=== PATIENT | female | born 1995 | race Caucasian/White ===

== ENCOUNTER 2016-06-22 09:13 | Inpatient (IN) | payer BC ==
[~2016-06-22] VITALS: Ht 154.9 cm; Wt 75.0 kg
[~2016-06-22 09:13] MED LIST: ALBUTEROL2.5 MG/3 M IH; AUGMENTIN875 MG PO; FLOVENT 11120 INHALA; HYDROCODON-ACE1 EACH; MOTRIN600 MG PO; NAPROSYN500 MG PO; PERCOCET 5/31 TABLET PO; PREDNISONE10 MG PO; PREDNISONE50 MG PO; PROAIR HFA8.5 GM; PROAIR HFA8.5 GM IH; QVAR 40 MCG IN7.3 GM IH; TRI-SPRINTEC1 EACH PO; VENTOLIN HFA18 GM IH; ZANTAC150 MG PO; ZOFRAN4 MG PO
[2016-06-22] MEDS ORDERED: OMEPRAZOLE40 M1 PO (09:46)
[2016-06-22] MEDS ORDERED: OXYCODONE HCL5 MG PO (09:46)
[2016-06-22 10:18] LABS: HEMATOCRIT 29.8 % (36.0-46.0); MCH 23.9 PG (29.0-34.0); MCHC 30.5 G/DL (30.0-36.0); MCV 78.2 FL (83-99); MEAN PLAT.VOLUME 10.4 uM^3 (9.5-12.4); NRBC (%) 0.1 /100 WBC (0-0); PLATELET COUNT 533 K/uL (156-360); RBC DIS.WIDTH-SD 50.3 % (39-53); RED BLOOD COUNT 3.81 M/uL (3.80-5.20); WHITE BLOOD COUNT 15.2 K/uL (4.1-10.2)
[2016-06-22 10:33] LABS: D-DIMER ELISA > 4.00 mg/L FEU (< 0.57)
[2016-06-22 10:48] LABS: ALKALINE PHOSPHATASE 168 IU/L (3-129); ANION GAP 10 MEQ/L (2-14); CHLORIDE 104 MEQ/L (99-109); GFR ESTIMATE (CALCULATED) > 59 mL/min/; GLUCOSE 105 mg/dL (70-99); POTASSIUM 4.2 MEQ/L (3.7-5.4); SAMPLE HEMOLYSIS CHECK 0; SAMPLE ICTERIC CHECK 0; SAMPLE LIPEMIA CHECK 0; SODIUM 137 MEQ/L (136-147); TOTAL BILIRUBIN 0.5 MG/DL (0.0-1.0); UREA NITROGEN (BUN) 13 mg/dL (9-23)
[2016-06-22 11:13] LABS: LIPASE 20 U/L (1.0-51.0)
[2016-06-22 11:44] LABS: BASOPHIL COUNT 0.1 K/uL (0-0.1); EOSINOPHIL (%) 1.3 % (0-5); EOSINOPHIL COUNT 0.2 K/uL (0-0.3); HEMATOLOGY COMMENT 1 SMEAR COMPATIBLE; IMMATURE GRANULOCYTE (%) 1.1 % (0.0-0.7); IMMATURE GRANULOCYTE COUNT 0.2 K/uL; LYMPHOCYTE COUNT 1.8 K/uL (1.0-2.8); MONOCYTE (%) 7.6 % (3-12); MONOCYTE COUNT 1.2 K/uL (0-0.8); NEUTROPHIL (%) 78.2 % (45-76); NEUTROPHIL COUNT 11.9 K/uL (1.8-6.4); USER ID STC
[2016-06-22] MEDS ORDERED: SYMBICORT60 INHALA1 IH (14:04)
[2016-06-22] MEDS ORDERED: TPN IV (14:05)
[2016-06-22 14:19] LABS: INTER. NORMALIZED RATIO 1.1; PROTHROMBIN TIME 10.7 (9.2-11.2); PTT 41.7 (25-32)
[2016-06-22 16:21] LABS: IRON 28 MCG/DL (35-150)
[2016-06-22 16:57] LABS: FERRITIN 43 NG/ML (10-291)
[2016-06-22 17:53] VITALS: BP 124/63
[2016-06-22 20:01] VITALS: BP 119/75
[2016-06-23 00:25] VITALS: BP 114/69
[2016-06-23 04:45] VITALS: BP 121/69
[2016-06-23 07:03] LABS: MCH 23.9 PG (29.0-34.0); MCHC 30.7 G/DL (30.0-36.0); MCV 77.8 FL (83-99); RBC DIS.WIDTH-CV 18.9 % (11.8-14.6); RBC DIS.WIDTH-SD 52.2 % (39-53); RED BLOOD COUNT 3.47 M/uL (3.80-5.20)
[2016-06-23 07:06] LABS: WHITE BLOOD COUNT 8.5 K/uL (4.1-10.2)
[2016-06-23 07:21] LABS: ANION GAP 9 MEQ/L (2-14); CHLORIDE 109 MEQ/L (99-109); GFR ESTIMATE (CALCULATED) > 59 mL/min/; GLUCOSE 80 mg/dL (70-99); POTASSIUM 3.7 MEQ/L (3.7-5.4); SAMPLE HEMOLYSIS CHECK 0; SAMPLE ICTERIC CHECK 0; SAMPLE LIPEMIA CHECK 0; SODIUM 140 MEQ/L (136-147); UREA NITROGEN (BUN) 6 mg/dL (9-23)
[2016-06-23 08:14] LABS: MEAN PLAT.VOLUME 10.2 uM^3 (9.5-12.4)
[2016-06-23 08:17] VITALS: BP 129/72
[2016-06-23 08:31] LABS: PLATELET COUNT 371 K/uL (156-360)
[2016-06-23 12:29] VITALS: BP 131/81
[2016-06-23 20:16] VITALS: BP 126/69
[2016-06-24] VITALS (7 sets, daily range): BP systolic 95–128; BP diastolic 43–73
[2016-06-24 04:43] LABS: ADD dRVVT REFLEX? Y; DRVVT Mixing Study Interp Not Indicated (()); dRVVT Screen 60 sec (<=45)
[2016-06-24 05:15] LABS: ADD PTT REFLEX? Y; PTT-LA 55 sec (<=40); PTT-LA Reflex Has been added (())
[2016-06-24 06:49] LABS: HEMATOCRIT 25.5 % (36.0-46.0); MCH 24.1 PG (29.0-34.0); MCHC 30.6 G/DL (30.0-36.0); MCV 78.7 FL (83-99); MEAN PLAT.VOLUME 10.6 uM^3 (9.5-12.4); PLATELET COUNT 328 K/uL (156-360); RBC DIS.WIDTH-CV 19.1 % (11.8-14.6); RBC DIS.WIDTH-SD 53.2 % (39-53); RED BLOOD COUNT 3.24 M/uL (3.80-5.20); WHITE BLOOD COUNT 7.9 K/uL (4.1-10.2)
[2016-06-24 07:14] LABS: EOSINOPHIL (%) 2.9 % (0-5); EOSINOPHIL COUNT 0.2 K/uL (0-0.3); IMMATURE GRANULOCYTE (%) 0.5 % (0.0-0.7); LYMPHOCYTE COUNT 2.1 K/uL (1.0-2.8); MONOCYTE (%) 9.8 % (3-12); MONOCYTE COUNT 0.8 K/uL (0-0.8); NEUTROPHIL (%) 60.1 % (45-76); NEUTROPHIL COUNT 4.7 K/uL (1.8-6.4)
[2016-06-24 07:15] LABS: ALKALINE PHOSPHATASE 115 IU/L (3-129); ANION GAP 12 MEQ/L (2-14); CHLORIDE 104 MEQ/L (99-109); DIRECT BILIRUBIN 0.2 mg/dL (0.0-0.3); GFR ESTIMATE (CALCULATED) > 59 mL/min/; GLUCOSE 87 mg/dL (70-99); MAGNESIUM 1.5 mg/dl (1.3-2.7); POTASSIUM 3.6 MEQ/L (3.7-5.4); PREALBUMIN 14.6 mg/dL (10-40); SAMPLE HEMOLYSIS CHECK 0; SAMPLE ICTERIC CHECK 0; SAMPLE LIPEMIA CHECK 0; SODIUM 139 MEQ/L (136-147); TOTAL BILIRUBIN 0.5 MG/DL (0.0-1.0); TRIGLYCERIDES 220 MG/DL (Normal: <150); UREA NITROGEN (BUN) 5 mg/dL (9-23)
[2016-06-24 13:56] LABS: Protein S, Free 84 % normal (50-147)
[2016-06-25 03:50] VITALS: BP 114/63
[2016-06-25 07:42] VITALS: BP 118/61
[2016-06-25 08:56] LABS: HEMATOCRIT 28.6 % (36.0-46.0); MCH 23.6 PG (29.0-34.0); MCHC 30.1 G/DL (30.0-36.0); MCV 78.4 FL (83-99); MEAN PLAT.VOLUME 10.6 uM^3 (9.5-12.4); PLATELET COUNT 335 K/uL (156-360); RBC DIS.WIDTH-CV 19.1 % (11.8-14.6); RBC DIS.WIDTH-SD 52.8 % (39-53); RED BLOOD COUNT 3.65 M/uL (3.80-5.20)
[2016-06-25 09:07] LABS: EOSINOPHIL (%) 2.9 % (0-5); EOSINOPHIL COUNT 0.2 K/uL (0-0.3); IMMATURE GRANULOCYTE (%) 0.4 % (0.0-0.7); LYMPHOCYTE COUNT 2.2 K/uL (1.0-2.8); MONOCYTE (%) 7.9 % (3-12); MONOCYTE COUNT 0.6 K/uL (0-0.8); NEUTROPHIL (%) 61.2 % (45-76); NEUTROPHIL COUNT 4.9 K/uL (1.8-6.4)
[2016-06-25 09:24] LABS: ANION GAP 11 MEQ/L (2-14); CHLORIDE 105 MEQ/L (99-109); GFR ESTIMATE (CALCULATED) > 59 mL/min/; POTASSIUM 4.1 MEQ/L (3.7-5.4); SAMPLE HEMOLYSIS CHECK 0; SAMPLE ICTERIC CHECK 0; SAMPLE LIPEMIA CHECK 0; SODIUM 138 MEQ/L (136-147); UREA NITROGEN (BUN) 11 mg/dL (9-23)
[2016-06-25 09:27] LABS: GLUCOSE 119 mg/dL (70-99); MAGNESIUM 1.9 mg/dl (1.3-2.7)
[2016-06-25 11:58] VITALS: BP 112/60
[2016-06-25 16:06] VITALS: BP 120/60
[2016-06-25 19:24] VITALS: BP 125/72
[2016-06-26] VITALS: BP 125/65
[2016-06-26 03:22] LABS: HEMATOCRIT 27.4 % (36.0-46.0); MCH 24.4 PG (29.0-34.0); MCV 78.7 FL (83-99); MEAN PLAT.VOLUME 10.7 uM^3 (9.5-12.4); PLATELET COUNT 348 K/uL (156-360); RBC DIS.WIDTH-CV 19.8 % (11.8-14.6); RBC DIS.WIDTH-SD 50.9 % (39-53); RED BLOOD COUNT 3.48 M/uL (3.80-5.20); WHITE BLOOD COUNT 8.4 K/uL (4.1-10.2)
[2016-06-26 03:23] LABS: EOSINOPHIL (%) 5.7 % (0-5); EOSINOPHIL COUNT 0.5 K/uL (0-0.3); IMMATURE GRANULOCYTE (%) 0.6 % (0.0-0.7); IMMATURE GRANULOCYTE COUNT 0.5 K/uL; LYMPHOCYTE COUNT 2.6 K/uL (1.0-2.8); MONOCYTE (%) 7.5 % (3-12); MONOCYTE COUNT 0.6 K/uL (0-0.8); NEUTROPHIL (%) 54.9 % (45-76); NEUTROPHIL COUNT 4.6 K/uL (1.8-6.4)
[2016-06-26 03:30] LABS: CHLORIDE 108 mEq/L (99-109)
[2016-06-26 03:31] LABS: MAGNESIUM 1.8 mg/dL (1.3-2.7); POTASSIUM 3.7 mEq/L (3.7-5.4); SODIUM 139 mEq/L (136-147)
[2016-06-26 03:37] LABS: GLUCOSE 134 mg/dL (70-99)
[2016-06-26 03:39] LABS: ANION GAP 8 MEQ/L (2-14)
[2016-06-26 03:41] LABS: GFR ESTIMATE (CALCULATED) > 59 mL/min/
[2016-06-26 03:42] LABS: UREA NITROGEN (BUN) 9 mg/dL (9-23)
[2016-06-26 03:48] VITALS: BP 116/76
[2016-06-26 07:54] VITALS: BP 116/65
[2016-06-26 11:30] VITALS: BP 109/55
[2016-06-26 15:54] VITALS: BP 109/68
[2016-06-26 19:32] VITALS: BP 123/87
[2016-06-27] VITALS: BP 116/69
[2016-06-27 04:00] VITALS: BP 108/57
[2016-06-27 06:47] LABS: ANION GAP 9 MEQ/L (2-14); CHLORIDE 104 MEQ/L (99-109); GFR ESTIMATE (CALCULATED) > 59 mL/min/; GLUCOSE 120 mg/dL (70-99); SAMPLE HEMOLYSIS CHECK 0; SAMPLE ICTERIC CHECK 0; SAMPLE LIPEMIA CHECK 0; SODIUM 135 MEQ/L (136-147); UREA NITROGEN (BUN) 11 mg/dL (9-23)
[2016-06-27 06:49] LABS: POTASSIUM 4.5 MEQ/L (3.7-5.4)
[2016-06-27 07:40] VITALS: BP 105/58
[2016-06-27 08:54] LABS: HEMATOCRIT 30.5 % (36.0-46.0); MCH 24.1 PG (29.0-34.0); MCHC 28.9 G/DL (30.0-36.0); MCV 83.6 FL (83-99); MEAN PLAT.VOLUME 11.4 uM^3 (9.5-12.4); PLATELET COUNT 330 K/uL (156-360); RBC DIS.WIDTH-CV 20.9 % (11.8-14.6); RBC DIS.WIDTH-SD 59.5 % (39-53); RED BLOOD COUNT 3.65 M/uL (3.80-5.20); WHITE BLOOD COUNT 6.4 K/uL (4.1-10.2)
[2016-06-27 11:00] LABS: HEMATOCRIT 32.3 % (36.0-46.0); MCH 24.3 PG (29.0-34.0); MCV 80.8 FL (83-99); MEAN PLAT.VOLUME 10.4 uM^3 (9.5-12.4); PLATELET COUNT 362 K/uL (156-360); RBC DIS.WIDTH-CV 20.8 % (11.8-14.6); RBC DIS.WIDTH-SD 56.9 % (39-53); WHITE BLOOD COUNT 7.8 K/uL (4.1-10.2)
[2016-06-27 11:06] VITALS: BP 120/59
[2016-06-27 15:46] VITALS: BP 113/55
[2016-06-27 18:55] LABS: HEMATOCRIT 34.3 % (36.0-46.0); MCH 24.9 PG (29.0-34.0); MCHC 30.9 G/DL (30.0-36.0); MCV 80.7 FL (83-99); MEAN PLAT.VOLUME 10.6 uM^3 (9.5-12.4); PLATELET COUNT 376 K/uL (156-360); RBC DIS.WIDTH-CV 21.1 % (11.8-14.6); RBC DIS.WIDTH-SD 57.1 % (39-53); RED BLOOD COUNT 4.25 M/uL (3.80-5.20)
[2016-06-27 19:22] LABS: TROP-I INTERPRETATION NEGATIVE; TROPONIN-I < 0.01 ng/mL (0.0-0.30)
[2016-06-27 20:00] VITALS: BP 125/75
[2016-06-28 00:34] VITALS: BP 112/63
[2016-06-28 04:00] VITALS: BP 119/59
[2016-06-28 07:06] LABS: ANION GAP 7 MEQ/L (2-14); CHLORIDE 106 MEQ/L (99-109); GFR ESTIMATE (CALCULATED) > 59 mL/min/; GLUCOSE 114 mg/dL (70-99); POTASSIUM 4.6 MEQ/L (3.7-5.4); SAMPLE HEMOLYSIS CHECK 0; SAMPLE ICTERIC CHECK 0; SAMPLE LIPEMIA CHECK 0; SODIUM 134 MEQ/L (136-147); UREA NITROGEN (BUN) 14 mg/dL (9-23)
[2016-06-28 08:05] VITALS: BP 112/65
[2016-06-28 15:12] VITALS: BP 105/59
[2016-06-28 23:52] VITALS: BP 107/55
[2016-06-29 06:56] LABS: HEMATOCRIT 30.8 % (36.0-46.0); MCHC 30.5 G/DL (30.0-36.0); MCV 81.9 FL (83-99); PLATELET COUNT 332 K/uL (156-360); RBC DIS.WIDTH-CV 20.9 % (11.8-14.6); RBC DIS.WIDTH-SD 61.8 % (39-53); RED BLOOD COUNT 3.76 M/uL (3.80-5.20); WHITE BLOOD COUNT 7.8 K/uL (4.1-10.2)
[2016-06-29 07:07] LABS: BASOPHIL COUNT 0.1 K/uL (0-0.1); EOSINOPHIL (%) 5.5 % (0-5); EOSINOPHIL COUNT 0.4 K/uL (0-0.3); IMMATURE GRANULOCYTE (%) 0.5 % (0.0-0.7); LYMPHOCYTE COUNT 2.2 K/uL (1.0-2.8); MONOCYTE (%) 6.7 % (3-12); MONOCYTE COUNT 0.5 K/uL (0-0.8); NEUTROPHIL (%) 58.6 % (45-76); NEUTROPHIL COUNT 4.5 K/uL (1.8-6.4)
[2016-06-29 07:23] LABS: ALKALINE PHOSPHATASE 90 IU/L (3-129); ANION GAP 8 MEQ/L (2-14); CHLORIDE 104 MEQ/L (99-109); DIRECT BILIRUBIN 0.2 mg/dL (0.0-0.3); GFR ESTIMATE (CALCULATED) > 59 mL/min/; GLUCOSE 107 mg/dL (70-99); MAGNESIUM 1.8 mg/dl (1.3-2.7); POTASSIUM 4.5 MEQ/L (3.7-5.4); PREALBUMIN 27.1 mg/dL (10-40); SAMPLE HEMOLYSIS CHECK 0; SAMPLE ICTERIC CHECK 0; SAMPLE LIPEMIA CHECK 0; SODIUM 136 MEQ/L (136-147); TOTAL BILIRUBIN 0.4 MG/DL (0.0-1.0); TRIGLYCERIDES 183 MG/DL (Normal: <150); UREA NITROGEN (BUN) 13 mg/dL (9-23)
[2016-06-29 07:45] VITALS: BP 106/58
[2016-06-29] MEDS ORDERED: LOVENOX60 MG/0.6 SC (14:53)
[2016-06-29 15:26] VITALS: BP 112/63
== END 2016-06-29 18:07 | disposition home or self-care (01) | DRG 871 ==
LOC: EME 09:13 → 5SOUTH 14:10 → EDOF 14:10 → 5SOUTH 17:08
PROVIDERS: Emergency Medicine; Hospitalist; Internal Medicine; Physician Assistant; Physician Assistant Medical
DX: A41.9 Sepsis, unspecified organism (principal); I26.99 Other pulmonary embolism without acute cor pulmonale; J18.9 Pneumonia, unspecified organism; E44.1 Mild protein-calorie malnutrition; K50.014 Crohn's disease of small intestine with abscess; K91.89 Other postprocedural complications and disorders of digestive system; D64.89 Other specified anemias; R07.89 Other chest pain; J45.20 Mild intermittent asthma, uncomplicated; I80.8 Phlebitis and thrombophlebitis of other sites; B95.1 Streptococcus, group B, as the cause of diseases classified elsewhere; B95.61 Methicillin susceptible Staphylococcus aureus infection as the cause of diseases classified elsewhere; E66.3 Overweight; K21.9 Gastro-esophageal reflux disease without esophagitis; Z98.890 Other specified postprocedural states; Z91.040 Latex allergy status; Z91.010 Allergy to peanuts; Z88.1 Allergy status to other antibiotic agents
CPT/HCPCS: 71020; 71275; 74177; 80048; 80053; 80202; 81241 90; 82248; 82607; 82728; 82746; 82948; 83090 90; 83540; 83605; 83690; 83735; 84100; 84134; 84466; 84478; 84484; 84630 90; 85025; 85027; 85305 90; 85306 90; 85379; 85597 90; 85610; 85613 90; 85730; 85730 90; 86140; 87040; 87077; 87147; 87186; 87801; 93005; 93970; 94010; 94640; 94640 76; 94760; 94799; 99202; 99281; 99285; J1170; J1200; J1650; J1756; J1815; J1885; J2270; J2405; J2543; J3370; J3475; J3480; J7030; J7040; J7042; J7050; S0028

== ENCOUNTER 2016-06-30 21:14 | Observation (INO) | payer BC ==
[~2016-06-30] VITALS: Ht 154.9 cm; Wt 73.8 kg
[~2016-06-30 21:14] MED LIST changes: +LOVENOX60 MG/0.6 SC; +OMEPRAZOLE40 M1 PO; +OXYCODONE HCL5 MG PO; +SYMBICORT60 INHALA1 IH; +TPN IV
[2016-06-30 23:50] LABS: HEMATOCRIT 31.3 % (36.0-46.0); MCH 25.1 PG (29.0-34.0); MCV 80.9 FL (83-99); MEAN PLAT.VOLUME 10.6 uM^3 (9.5-12.4); PLATELET COUNT 332 K/uL (156-360); RBC DIS.WIDTH-SD 58.8 % (39-53); RED BLOOD COUNT 3.87 M/uL (3.80-5.20); WHITE BLOOD COUNT 8.2 K/uL (4.1-10.2)
[2016-07-01 00:01] LABS: CHLORIDE 105 mEq/L (99-109); INTER. NORMALIZED RATIO 1.1; POTASSIUM 3.7 mEq/L (3.7-5.4); PROTHROMBIN TIME 11.3 (9.2-11.2); SODIUM 139 mEq/L (136-147)
[2016-07-01 00:04] LABS: ANION GAP 11 MEQ/L (2-14)
[2016-07-01 00:05] LABS: TOTAL BILIRUBIN 0.7 mg/dL (0.0-1.0)
[2016-07-01 00:07] LABS: ALKALINE PHOSPHATASE 109 IU/L (3-129); EOSINOPHIL (%) 4.3 % (0-5); EOSINOPHIL COUNT 0.4 K/uL (0-0.3); GFR ESTIMATE (CALCULATED) > 59 mL/min/; IMMATURE GRANULOCYTE (%) 0.2 % (0.0-0.7); IMMATURE GRANULOCYTE COUNT 0.2 K/uL; LYMPHOCYTE COUNT 2.2 K/uL (1.0-2.8); MONOCYTE (%) 6.6 % (3-12); MONOCYTE COUNT 0.5 K/uL (0-0.8); NEUTROPHIL (%) 62.1 % (45-76); NEUTROPHIL COUNT 5.1 K/uL (1.8-6.4)
[2016-07-01 00:08] LABS: UREA NITROGEN (BUN) 13 mg/dL (9-23)
[2016-07-01 00:10] LABS: CREATINE KINASE 15 IU/L (1-294); LIPASE 7 U/L (1.0-51.0); TOTAL CK 15 IU/L (1-294)
[2016-07-01 00:12] LABS: TROP-I INTERPRETATION NEGATIVE; TROPONIN-I 0.02 ng/mL (0.0-0.30)
[2016-07-01 00:16] LABS: CK-MB < 0.4 ng/mL (0.0-4.9)
[2016-07-01 00:19] LABS: GLUCOSE 80 mg/dL (70-99)
[2016-07-01] MEDS ORDERED: PIPERACIL-TA3.375 GM IV (01:40)
[2016-07-01 04:59] VITALS: BP 100/53
[2016-07-01 06:35] VITALS: BP 104/55
[2016-07-01 07:16] VITALS: BP 105/61
[2016-07-01 07:23] LABS: HEMATOCRIT 28.9 % (36.0-46.0); MCH 25.1 PG (29.0-34.0); MCHC 31.1 G/DL (30.0-36.0); MCV 80.7 FL (83-99); MEAN PLAT.VOLUME 10.5 uM^3 (9.5-12.4); PLATELET COUNT 244 K/uL (156-360); RBC DIS.WIDTH-CV 20.9 % (11.8-14.6); RBC DIS.WIDTH-SD 61.5 % (39-53); RED BLOOD COUNT 3.58 M/uL (3.80-5.20); WHITE BLOOD COUNT 6.3 K/uL (4.1-10.2)
[2016-07-01 07:50] LABS: ALKALINE PHOSPHATASE 82 IU/L (3-129); ANION GAP 10 MEQ/L (2-14); CHLORIDE 107 MEQ/L (99-109); GFR ESTIMATE (CALCULATED) > 59 mL/min/; GLUCOSE 79 mg/dL (70-99); POTASSIUM 3.9 MEQ/L (3.7-5.4); SAMPLE HEMOLYSIS CHECK 0; SAMPLE ICTERIC CHECK 0; SAMPLE LIPEMIA CHECK 0; SODIUM 139 MEQ/L (136-147); UREA NITROGEN (BUN) 12 mg/dL (9-23)
[2016-07-01 07:51] LABS: TROP-I INTERPRETATION NEGATIVE; TROPONIN-I < 0.01 ng/mL (0.0-0.30)
[2016-07-01 07:52] LABS: TOTAL BILIRUBIN 0.5 MG/DL (0.0-1.0)
[2016-07-01 08:09] LABS: MAGNESIUM 1.4 mg/dl (1.3-2.7)
[2016-07-01 11:49] VITALS: BP 122/61
[2016-07-01 13:46] LABS: TROP-I INTERPRETATION NEGATIVE; TROPONIN-I < 0.01 ng/mL (0.0-0.30)
== END 2016-07-01 14:50 | disposition home or self-care (01) ==
LOC: EME 21:14 → 5WEST 07-01 02:38 → EDOF 07-01 02:38 → 5WEST 07-01 04:33
PROVIDERS: Emergency Medicine; Internal Medicine
DX: K50.90 Crohn's disease, unspecified, without complications (principal); R07.9 Chest pain, unspecified; I26.99 Other pulmonary embolism without acute cor pulmonale; K91.89 Other postprocedural complications and disorders of digestive system; Z98.890 Other specified postprocedural states; K21.9 Gastro-esophageal reflux disease without esophagitis; J45.909 Unspecified asthma, uncomplicated; Z79.01 Long term (current) use of anticoagulants; Z88.1 Allergy status to other antibiotic agents; Z91.040 Latex allergy status; Z91.010 Allergy to peanuts
CPT/HCPCS: 71010; 80053; 81003; 82550; 82553; 83605; 83690; 83735; 84100; 84484; 85025; 85027; 85610; 85730; 93005; 94640; 99202; 99281; 99285; C9113; G0378; J1650; J1885; J2060; J2270; J2405; J2543; J3475; J7030; J7050

== ENCOUNTER 2016-10-30 21:50 | Emergency (ER) | payer BC ==
[~2016-10-30] VITALS: Ht 154.9 cm; Wt 72.9 kg
[~2016-10-30 21:50] MED LIST changes: +PIPERACIL-TA3.375 GM IV
[2016-10-30 22:56] LABS: HEMATOCRIT 42.7 % (36.0-46.0); MCH 26.1 PG (29.0-34.0); MCHC 32.1 G/DL (30.0-36.0); MCV 81.5 FL (83-99); MEAN PLAT.VOLUME 9.4 uM^3 (9.5-12.4); PLATELET COUNT 363 K/uL (156-360); RBC DIS.WIDTH-CV 19.4 % (11.8-14.6); RBC DIS.WIDTH-SD 55.2 % (39-53); RED BLOOD COUNT 5.24 M/uL (3.80-5.20); WHITE BLOOD COUNT 13.1 K/uL (4.1-10.2)
[2016-10-30 23:05] LABS: CHLORIDE 106 mEq/L (99-109); POTASSIUM 3.6 mEq/L (3.7-5.4); SODIUM 137 mEq/L (136-147)
[2016-10-30 23:06] LABS: GLUCOSE 92 mg/dL (70-99)
[2016-10-30 23:08] LABS: ANION GAP 6 MEQ/L (2-14)
[2016-10-30 23:10] LABS: GFR ESTIMATE (CALCULATED) > 59 mL/min/
[2016-10-30 23:34] LABS: PROTHROMBIN TIME 119.1 (9.2-11.2); PTT 79.3 (25-32)
[2016-10-30 23:55] VITALS: BP 138/90
[2016-10-31 00:13] LABS: INTER. NORMALIZED RATIO 10.9
[2016-10-31 02:22] LABS: UREA NITROGEN (BUN) 10 mg/dL (9-23)
== END 2016-10-31 00:08 | disposition home or self-care (01) ==
LOC: EME 21:50
DX: R79.1 Abnormal coagulation profile (principal); R51 Headache; Z86.711 Personal history of pulmonary embolism; Z79.01 Long term (current) use of anticoagulants; J45.909 Unspecified asthma, uncomplicated; K21.9 Gastro-esophageal reflux disease without esophagitis
CPT/HCPCS: 70450; 71020; 80048; 85027; 85610; 85730; 99281; 99283

== ENCOUNTER 2017-02-04 16:49 | Emergency (ER) | payer BC ==
[~2017-02-04] VITALS: Ht 154.9 cm; Wt 75.8 kg
[2017-02-04] MEDS ORDERED: TRAZODONE HCL50 MG PO (17:11)
[2017-02-04] MEDS ORDERED: FLUOXETINE HCL10 MG PO (17:11)
[2017-02-04 17:22] LABS: HEMATOCRIT 42.1 % (36.0-46.0); MCH 28.8 PG (29.0-34.0); MCHC 33.5 G/DL (30.0-36.0); MCV 86.1 FL (83-99); MEAN PLAT.VOLUME 9.6 uM^3 (9.5-12.4); PLATELET COUNT 297 K/uL (156-360); RBC DIS.WIDTH-CV 12.5 % (11.8-14.6); RBC DIS.WIDTH-SD 39.4 % (39-53); RED BLOOD COUNT 4.89 M/uL (3.80-5.20); WHITE BLOOD COUNT 11.8 K/uL (4.1-10.2)
[2017-02-04 17:32] LABS: CHLORIDE 103 mEq/L (99-109); POTASSIUM 3.8 mEq/L (3.7-5.4); SODIUM 138 mEq/L (136-147)
[2017-02-04 17:34] LABS: GLUCOSE 91 mg/dL (70-99)
[2017-02-04 17:36] LABS: ANION GAP 13 MEQ/L (2-14); TOTAL BILIRUBIN 0.4 mg/dL (0.0-1.0)
[2017-02-04 17:38] LABS: ALKALINE PHOSPHATASE 116 IU/L (3-129); GFR ESTIMATE (CALCULATED) > 59 mL/min/
[2017-02-04 17:39] LABS: UREA NITROGEN (BUN) 8 mg/dL (9-23)
[2017-02-04 17:41] LABS: LIPASE 15 U/L (1.0-51.0)
[2017-02-04 17:45] LABS: AMYLASE 46 IU/L (1-118)
[2017-02-04 17:48] LABS: QUANTITATIVE HCG < 4.0 MIU/ML
[2017-02-04 17:59] LABS: ADD MIUA? YES; BILIRUBIN NEGATIVE; BLOOD NEGATIVE; COLOR YELLOW ((YELLOW)); GLUCOSE (STRIP) NEGATIVE; KETONES NEGATIVE; LEUKOCYTES SMALL; NITRITE NEGATIVE; PROTEIN (STRIP) NEGATIVE; SPECIFIC GRAVITY 1.014 (1.000-1.030); UROBILINOGEN 0.2 MG/DL (0.2-1.0)
[2017-02-04 18:04] LABS: BACTERIA NONE SEEN /HPF; EPITHELIAL CELLS RARE /HPF; HYALINE CASTS 0-5 /LPF; MUCUS TRACE /LPF; RED BLOOD CELLS 0-5 /HPF (0-5); UCUL ADDED? YES; WHITE BLOOD CELLS 20-30 /HPF (0-5)
[2017-02-04] MEDS ORDERED: PREDNISONE20 MG PO (21:31)
[2017-02-04 21:50] VITALS: BP 126/76
== END 2017-02-04 21:51 | disposition home or self-care (01) ==
LOC: EME 16:49
PROVIDERS: Physician Assistant Medical
DX: K50.911 Crohn's disease, unspecified, with rectal bleeding (principal); N83.292 Other ovarian cyst, left side; Z90.49 Acquired absence of other specified parts of digestive tract; J45.909 Unspecified asthma, uncomplicated; Z86.711 Personal history of pulmonary embolism
CPT/HCPCS: 74177; 76856; 80053; 81003; 82150; 83690; 84702; 85027; 87077; 87086; 87186; 87493; 99281; 99285; J1885; J2405; J7030; J7512

== ENCOUNTER 2017-06-07 10:37 | Inpatient (IN) | payer BC ==
[~2017-06-07] VITALS: Ht 154.9 cm; Wt 81.5 kg
[~2017-06-07 10:37] MED LIST changes: +FLUOXETINE HCL10 MG PO; +PREDNISONE20 MG PO; +TRAZODONE HCL50 MG PO
[2017-06-07 11:51] LABS: HEMATOCRIT 43.2 % (36.0-46.0); MCH 29.5 PG (29.0-34.0); MCHC 34.7 G/DL (30.0-36.0); MCV 84.9 FL (83-99); PLATELET COUNT 392 K/uL (156-360); RBC DIS.WIDTH-CV 12.2 % (11.8-14.6); RBC DIS.WIDTH-SD 37.5 % (39-53); RED BLOOD COUNT 5.09 M/uL (3.80-5.20); WHITE BLOOD COUNT 14.6 K/uL (4.1-10.2)
[2017-06-07 12:03] LABS: ALBUMIN 4.3 g/dL (3.2-4.8); CHLORIDE 103 mEq/L (99-109); POTASSIUM 3.6 mEq/L (3.7-5.4); SODIUM 137 mEq/L (136-147)
[2017-06-07 12:04] LABS: APPEARANCE SL.HAZY ((CLEAR)); BILIRUBIN NEGATIVE; BLOOD MODERATE; COLOR YELLOW ((YELLOW)); GLUCOSE (STRIP) NEGATIVE; KETONES NEGATIVE; LEUKOCYTES LARGE; NITRITE NEGATIVE; PROTEIN (STRIP) NEGATIVE; SPECIFIC GRAVITY 1.012 (1.000-1.030); UROBILINOGEN 0.2 MG/DL (0.2-1.0)
[2017-06-07 12:05] LABS: GLUCOSE 87 mg/dL (70-99); TOTAL PROTEIN 7.7 g/dL (6.4-8.3)
[2017-06-07 12:07] LABS: TOTAL BILIRUBIN 0.5 mg/dL (0.0-1.0)
[2017-06-07 12:09] LABS: BACTERIA RARE /HPF; CALCIUM OXALATE CRYSTALS 1+ /HPF; EPITHELIAL CELLS RARE /HPF; MUCUS TRACE /LPF; UCUL ADDED? YES; WHITE BLOOD CELLS TNTC /HPF (0-5)
[2017-06-07 12:09] LABS: ALKALINE PHOSPHATASE 121 IU/L (3-129); CREATININE 0.7 mg/dL (0.6-1.3); GFR ESTIMATE (CALCULATED) > 59 mL/min/
[2017-06-07 12:10] LABS: UREA NITROGEN (BUN) 10 mg/dL (9-23)
[2017-06-07 12:11] LABS: AST (GOT) 19 IU/L (2-34)
[2017-06-07 12:12] LABS: ALT (GPT) 13 IU/L (3-49)
[2017-06-07 12:18] LABS: QUANTITATIVE HCG < 4.0 MIU/ML
[2017-06-07] MEDS ORDERED: CEFTIN250 MG PO (19:32)
[2017-06-07 19:45] LABS: C DIFF TOXIN POSITIVE (NEGATIVE)
[2017-06-07] MEDS ORDERED: VENTOLIN HFA18 GM IH (20:08)
[2017-06-07] MEDS ORDERED: MONTELUKAST SOD10 MG PO (20:10)
[2017-06-07] MEDS ORDERED: BREO ELLIPTA 21 EACH IH (20:10)
[2017-06-07] MEDS ORDERED: ALBUTEROL1.25 MG/3 IH (20:10)
[2017-06-08 07:20] LABS: BASOPHIL (%) 0.7 % (0-1); BASOPHIL COUNT 0.1 K/uL (0-0.1); EOSINOPHIL (%) 11.8 % (0-5); EOSINOPHIL COUNT 1.2 K/uL (0-0.3); HEMATOCRIT 39.2 % (36.0-46.0); HEMOGLOBIN 13.1 G/DL (11.9-15.5); IMMATURE GRANULOCYTE (%) 0.5 % (0.0-0.7); LYMPHOCYTE (%) 26.8 % (15-42); LYMPHOCYTE COUNT 2.7 K/uL (1.0-2.8); MCH 28.8 PG (29.0-34.0); MCHC 33.4 G/DL (30.0-36.0); MCV 86.2 FL (83-99); MONOCYTE (%) 6.3 % (3-12); MONOCYTE COUNT 0.6 K/uL (0-0.8); NEUTROPHIL (%) 53.9 % (45-76); NEUTROPHIL COUNT 5.3 K/uL (1.8-6.4); PLATELET COUNT 280 K/uL (156-360); RBC DIS.WIDTH-CV 12.5 % (11.8-14.6); RBC DIS.WIDTH-SD 39.7 % (39-53); RED BLOOD COUNT 4.55 M/uL (3.80-5.20); WHITE BLOOD COUNT 9.9 K/uL (4.1-10.2)
[2017-06-08 07:35] LABS: CHLORIDE 111 mEq/L (99-109); POTASSIUM 3.8 mEq/L (3.7-5.4); SODIUM 138 mEq/L (136-147)
[2017-06-08 07:36] LABS: GLUCOSE 79 mg/dL (70-99)
[2017-06-08 07:40] LABS: CREATININE 0.6 mg/dL (0.6-1.3); GFR ESTIMATE (CALCULATED) > 59 mL/min/
[2017-06-08 07:41] LABS: UREA NITROGEN (BUN) 7 mg/dL (9-23)
[2017-06-08 19:30] VITALS: BP 137/86
[2017-06-08 23:58] VITALS: BP 111/55
[2017-06-09 06:13] LABS: BASOPHIL COUNT 0.1 K/uL (0-0.1); EOSINOPHIL (%) 10.1 % (0-5); EOSINOPHIL COUNT 0.8 K/uL (0-0.3); HEMATOCRIT 38.5 % (36.0-46.0); HEMOGLOBIN 12.8 G/DL (11.9-15.5); IMMATURE GRANULOCYTE (%) 0.2 % (0.0-0.7); LYMPHOCYTE (%) 30.4 % (15-42); LYMPHOCYTE COUNT 2.5 K/uL (1.0-2.8); MCH 28.6 PG (29.0-34.0); MCHC 33.2 G/DL (30.0-36.0); MCV 85.9 FL (83-99); MONOCYTE (%) 6.5 % (3-12); MONOCYTE COUNT 0.5 K/uL (0-0.8); NEUTROPHIL (%) 51.8 % (45-76); NEUTROPHIL COUNT 4.3 K/uL (1.8-6.4); PLATELET COUNT 291 K/uL (156-360); RBC DIS.WIDTH-CV 12.1 % (11.8-14.6); RBC DIS.WIDTH-SD 38.5 % (39-53); RED BLOOD COUNT 4.48 M/uL (3.80-5.20); WHITE BLOOD COUNT 8.3 K/uL (4.1-10.2)
[2017-06-09 06:53] LABS: CHLORIDE 103 MEQ/L (99-109); CREATININE 0.6 MG/DL (0.6-1.3); GFR ESTIMATE (CALCULATED) > 59 mL/min/; GLUCOSE 73 mg/dL (70-99); MAGNESIUM 1.8 mg/dl (1.3-2.7); POTASSIUM 3.8 MEQ/L (3.7-5.4); SODIUM 137 MEQ/L (136-147); UREA NITROGEN (BUN) 4 mg/dL (9-23)
[2017-06-09 07:40] VITALS: BP 128/66
[2017-06-09 07:58] VITALS: BP 128/66
[2017-06-09 10:23] LABS: INTER. NORMALIZED RATIO 1.2
[2017-06-09] MEDS ORDERED: LOVENOX80 MG/0.8 SC (10:44)
[2017-06-09] MEDS ORDERED: FLAGYL500 MG PO (14:08)
[2017-06-09] MEDS ORDERED: COUMADIN3 MG PO (14:10)
== END 2017-06-09 15:47 | disposition home or self-care (01) | DRG 372 ==
LOC: EME 10:37 → EDOF 21:42 → ENRESERV 21:44 → 5EAST 06-08 19:30
PROVIDERS: Emergency Medicine; Hospitalist; Physician Assistant
DX: A04.71 Enterocolitis due to Clostridium difficile, recurrent (principal); I82.890 Acute embolism and thrombosis of other specified veins; K50.90 Crohn's disease, unspecified, without complications; D68.62 Lupus anticoagulant syndrome; E73.9 Lactose intolerance, unspecified; F90.9 Attention-deficit hyperactivity disorder, unspecified type; J45.909 Unspecified asthma, uncomplicated; K21.9 Gastro-esophageal reflux disease without esophagitis; E66.9 Obesity, unspecified; Z90.49 Acquired absence of other specified parts of digestive tract; Z86.711 Personal history of pulmonary embolism; Z97.5 Presence of (intrauterine) contraceptive device; Z88.1 Allergy status to other antibiotic agents; Z91.010 Allergy to peanuts; Z91.040 Latex allergy status; Z68.33 Body mass index [BMI] 33.0-33.9, adult
CPT/HCPCS: 74177; 80048; 80053; 81003; 82948; 83735; 84702; 85025; 85027; 85610; 87040; 87086; 87493; 94640; 99281; 99285; J1650; J2270; J2405; J2543; J7030; J7040; J7050; S0030